=== PATIENT | female | born 1975 | race Caucasian/White ===

== ENCOUNTER → 2016-10-02 | Outpatient (CLI) | payer OTHER ==
--- NOTE | 2016-10-07 09:14 | MM ---
Reason for exam: screening (asymptomatic). Baseline mammogram. History: Patient is nulliparous. Saline implants in both breasts, 1996. Took hormonal contraceptives for 1 year. Physical Findings: Nurse did not find any significant physical abnormalities on exam. MG Screening Mammo Implant/CAD Bilateral CC, MLO, and ID view(s) were taken. There are scattered fibroglandular densities. There is no discrete abnormality. Bilateral implants. ASSESSMENT: Negative, BI-RAD 1 RECOMMENDATION: Routine screening mammogram of both breasts in 1 year.
== END | disposition home or self-care (01) ==
LOC: RADMAMWWP 13:52
PROVIDERS: ATTEND Family Medicine
DX: Z12.31 Encounter for screening mammogram for malignant neoplasm of breast (principal)

== ENCOUNTER 2017-02-10 16:45 | Emergency (ER) | payer OTHER ==
[2017-02-10 16:51] VITALS: TEMP 97.3
[2017-02-10] MEDS ORDERED: SODIUM CHLORIDE 0.9% 1,000 ML IV STA (16:56)
[2017-02-10 17:04] LABS: Glucose,Whole Blood 137 mg/dL (75-99)
--- NOTE | 2017-02-10 17:05 | ED ---
Syncope HPI - General Chief Complaint: Syncope Stated Complaint: syncope Time Seen by Provider: 02/10/17 16:47 Source: EMS, RN notes reviewed Mode of arrival: EMS Limitations: no limitations - History of Present Illness Initial Comments: 41-year-old female presents to the emergency department with a chief complaint syncopal episode. Patient donated plasma today. Patient states that she was informed that they took too much plasma did not get her blood back. Patient states that time she felt fine when she had to leave she felt lightheaded and she passed out. Patient states she believes she hit her head she has pain to the back of the head. Patient states that this time she has a mild headache. Patient denies any lightheadedness or dizziness when she sits still. Patient states that she was concerned due to her continued symptoms so she presents to be evaluated. Patient denies any recent fever, chills, shortness of breath, chest pain, back pain, abdominal pain, nausea vomiting, numbness or tingling, dysuria or hematuria, constipation or diarrhea, visual changes, or any other current symptoms. - Related Data Home Medications Medication Instructions Recorded Confirmed Acetaminophen [Tylenol] 1,000 mg PO DAILY PRN 02/10/17 02/10/17 Fluticasone Nasal [place] [Flonase 2 spr EA NOSTRIL DAILY PRN 02/10/17 02/10/17 Nasal [place]] Allergies Allergy/AdvReac Type Severity Reaction Status Date / Time latex Allergy Rash/Hives Verified 02/10/17 17:15 Review of Systems ROS Statement: Those systems with pertinent positive or pertinent negative responses have been documented in the HPI. ROS Other: All systems not noted in ROS Statement are negative. Past Medical History Past Medical History: No Reported History History of Any Multi-Drug Resistant Organisms: None Reported Past Surgical History: Uterine Ablation Additional Past Surgical History / Comment(s): nephrectomy l, ectopic Past Psychological History: No Psychological Hx Reported Smoking Status: Never smoker Past Alcohol Use History: None Reported, Rare Past Drug Use History: None Reported General Exam - General Exam Comments Initial Comments: General: The patient is awake and alert, in no distress, and does not appear acutely ill. Eye: Pupils are equal, round and reactive to light, extra-ocular movements are intact; there is normal conjunctiva bilaterally. No signs of icterus. Ears, nose, mouth and throat: There are moist mucous membranes and no oral lesions. Neck: The neck is supple, there is no tenderness. Cardiovascular: There is a regular rate and rhythm. No murmur, rub or gallop is appreciated. Respiratory: Lungs are clear to auscultation, respirations are non-labored, breath sounds are equal. No wheezes, stridor, rales, or rhonchi. Gastrointestinal: Soft, non-distended, non-tender abdomen without masses or organomegaly noted. There is no rebound or guarding present. No CVA tenderness. Bowel sounds are unremarkable. Back: There is no tenderness to palpation in the midline. There is no obvious deformity. No rashes noted. Musculoskeletal: Normal ROM, no tenderness, There is no pedal edema. There is no calf tenderness or swelling. Sensation intact. Pulses equal bilaterally 2+. Neurological: CN II-XII intact, There are no obvious motor or sensory deficits. Coordination appears grossly intact. Speech is normal. Skin: Skin is warm and dry and no rashes or lesions are noted. Psychiatric: Cooperative, appropriate mood & affect, normal judgment. Limitations: no limitations Course Vital Signs 02/10/17 16:47 Temperature 97.3 F L Pulse Rate 96 Respiratory 18 Rate Blood Pressure 129/93 O2 Sat by Pulse 100 Oximetry EKG Findings - EKG Comments: EKG Findings:: normal sinus rhythm 90 bpm, rightward axis, no atopy, no S-T depressions or elevations, Medical Decision Making - Medical Decision Making 41-year-old female presents for syncopal episode. This time is reviewed and does appear to be stable. This time patient does show some dehydration. We did hydrate the patient. We did discuss symptoms are most likely due to the duration of positive. We discussed return parameters and follow-up. Patient states she understood all questions have. She'll be discharged. - Lab Data Result diagrams: 02/10/17 17:07 02/10/17 17:07 Lab Results 02/10/17 02/10/17 02/10/17 Range/Units 17:02 17:07 17:07 WBC 8.5 (3.8-10.6) k/uL RBC 5.43 H (3.80-5.40) m/uL Hgb 17.5 H (11.4-16.0) gm/dL Hct 52.5 H (34.0-46.0) % MCV 96.7 (80.0-100.0) fL MCH 32.2 (25.0-35.0) pg MCHC 33.3 (31.0-37.0) g/dL RDW 12.4 (11.5-15.5) % Plt Count 201 (150-450) k/uL Neutrophils % 69 % Lymphocytes % 22 % Monocytes % 5 % Eosinophils % 1 % Basophils % 1 % Neutrophils # 5.9 (1.3-7.7) k/uL Lymphocytes # 1.9 (1.0-4.8) k/uL Monocytes # 0.4 (0-1.0) k/uL Eosinophils # 0.1 (0-0.7) k/uL Basophils # 0.1 (0-0.2) k/uL Sodium (137-145) mmol/L Potassium (3.5-5.1) mmol/L Chloride (98-107) mmol/L Carbon Dioxide (22-30) mmol/L Anion Gap mmol/L BUN (7-17) mg/dL Creatinine (0.52-1.04) mg/dL Est GFR (MDRD) Af Amer (>60 ml/min/1.73 sqM) Est GFR (MDRD) Non-Af (>60 ml/min/1.73 sqM) Glucose (74-99) mg/dL POC Glucose (mg/dL) 137 H (75-99) mg/dL POC Glu Flyer Builder ID Anger, Suzanne Calcium (8.4-10.2) mg/dL Total Bilirubin (0.2-1.3) mg/dL AST (14-36) U/L ALT (9-52) U/L Alkaline Phosphatase (38-126) U/L Total Protein (6.3-8.2) g/dL Albumin (3.5-5.0) g/dL Blood Type O Positive Blood Type Recheck O Pos Antibody Screen NEGATIVE Spec Expiration Date 02/13/2017230602/10/17 Range/Units 17:07 WBC (3.8-10.6) k/uL RBC (3.80-5.40) m/uL Hgb (11.4-16.0) gm/dL Hct (34.0-46.0) % MCV (80.0-100.0) fL MCH (25.0-35.0) pg MCHC (31.0-37.0) g/dL RDW (11.5-15.5) % Plt Count (150-450) k/uL Neutrophils % % Lymphocytes % % Monocytes % % Eosinophils % % Basophils % % Neutrophils # (1.3-7.7) k/uL Lymphocytes # (1.0-4.8) k/uL Monocytes # (0-1.0) k/uL Eosinophils # (0-0.7) k/uL Basophils # (0-0.2) k/uL Sodium 140 (137-145) mmol/L Potassium 4.0 (3.5-5.1) mmol/L Chloride 108 H (98-107) mmol/L Carbon Dioxide 18 L (22-30) mmol/L Anion Gap 14 mmol/L BUN 10 (7-17) mg/dL Creatinine 0.87 (0.52-1.04) mg/dL Est GFR (MDRD) Af Amer >60 (>60 ml/min/1.73 sqM) Est GFR (MDRD) Non-Af >60 (>60 ml/min/1.73 sqM) Glucose 134 H (74-99) mg/dL POC Glucose (mg/dL) (75-99) mg/dL POC Glu Flyer Builder ID Calcium 9.3 (8.4-10.2) mg/dL Total Bilirubin 0.8 (0.2-1.3) mg/dL AST 22 (14-36) U/L ALT 22 (9-52) U/L Alkaline Phosphatase 53 (38-126) U/L Total Protein 7.4 (6.3-8.2) g/dL Albumin 4.4 (3.5-5.0) g/dL Blood Type Blood Type Recheck Antibody Screen Spec Expiration Date - Radiology Data Radiology results: report reviewed, image reviewed Disposition Clinical Impression: Vasovagal syncope, Dehydration, Syncope Disposition: HOME SELF-CARE Condition: Stable Instructions: Syncope (ED) Additional Instructions: Please use medication as discussed. Please follow up with family doctor if symptoms have not improved over the next two days. Please return to the emergency room if your symptoms increase or worsen or for any other concerns. Referrals: Terra Brown III, MD [Primary Care Provider] - 1-2 days Time of Disposition: 18:25
[2017-02-10 17:32] LABS: Basophils # (A) 0.1 k/uL (0-0.2); Basophils % (A) 1 %; CH 32.7; CHCM 33.9; Eosinophils # (A) 0.1 k/uL (0-0.7); Eosinophils % (A) 1 %; HCT 52.5 % (34.0-46.0); HDW 2.28; HGB 17.5 gm/dL (11.4-16.0); Luc # (Auto) 0.16; Luc % (Auto) 2; Lymphocytes # (A) 1.9 k/uL (1.0-4.8); Lymphocytes % (A) 22 %; MCH 32.2 pg (25.0-35.0); MCHC 33.3 g/dL (31.0-37.0); MCV 96.7 fL (80.0-100.0); Mean Platelet Volume 7.1; Monocytes # (A) 0.4 k/uL (0-1.0); Monocytes % (A) 5 %; Neutrophils # (A) 5.9 k/uL (1.3-7.7); Neutrophils % (A) 69 %; RBC 5.43 m/uL (3.80-5.40); RDW 12.4 % (11.5-15.5); WBC 8.5 k/uL (3.8-10.6); WBC (Perox) 8.52
[2017-02-10 17:43] LABS: ALT 22 U/L (9-52); AST 22 U/L (14-36); Alkaline Phosphatase 53 U/L (38-126); Anion Gap 14 mmol/L; Blood Urea Nitrogen 10 mg/dL (7-17); Calcium 9.3 mg/dL (8.4-10.2); Carbon Dioxide 18 mmol/L (22-30); Chloride 108 mmol/L (98-107); Glucose 134 mg/dL (74-99); Non-African American GFR(MDRD) >60 (>60 ml/min/1.73 sqM); Sodium 140 mmol/L (137-145); Total Bilirubin 0.8 mg/dL (0.2-1.3); Total Protein 7.4 g/dL (6.3-8.2)
--- NOTE | 2017-02-10 18:06 | CT ---
EXAMINATION TYPE: CT brain terriine wo con DATE OF EXAM: 02/10/2017 5:44 PM COMPARISON: NONE Neck pain HISTORY: Syncope neck pain CT DLP: 1764 mGycm Automated exposure control for dose reduction was used. TECHNIQUE: CT scan of the head and cervical spine are performed without contrast. FINDINGS: The ventricles and sulci appear normal. There is no mass effect nor midline shift. There is no sign of intracranial hemorrhage. The calvarium is intact. The cervical vertebra have normal spacing and alignment. Posterior elements are intact. Skull base ap pears intact. There is no evidence of a fracture. Facet joints appear normal. IMPRESSION: Normal CT scan of the cervical spine. Normal CT scan of the brain.
[2017-02-10 18:34] VITALS: RESP 16
[2017-02-10 18:54] VITALS: BP 138/86; PULSE 70
== END 2017-02-10 18:53 | disposition home or self-care (01) ==
LOC: EC 16:45
DX: E86.0 Dehydration (principal); R55 Syncope and collapse; R51 Headache; Z91.040 Latex allergy status
CPT/HCPCS: 36415; 70450; 72125; 80053; 85025; 86850; 86900; 86901; 93005; 96360; 96361; 99285

== ENCOUNTER → 2018-01-18 | Outpatient (CLI) | payer OTHER ==
--- NOTE | 2018-01-18 10:18 | US ---
EXAMINATION TYPE: US abdomen comp/pelvis limited DATE OF EXAM: 01/18/2018 COMPARISON: Abdominal x-ray December 30, 2014. MRI lumbar spine October 24, 2012. CLINICAL HISTORY: N28.89 DISORDER OF KIDNEY AND URETER,R10.9 ABD PAIN. Intermittent abdomen and lower back pain x 3 weeks, bloating, UTI, history of left nephrectomy EXAM MEASUREMENTS: Liver Length: 12.6 cm Gallbladder Wall: 0.2 cm CBD: 0.4 cm Spleen: 11.7 cm Right Kidney: 12.2 x 5.4 x 5.7 cm Left Kidney: surgically absent Post Void Residual: 34.8 mL Pancreas: visualized portions wnl, tail obscured by overlying midline bowel gas Liver: 1.4 x 1.3 x 1.6cm hypoechoic lesion right lobe , slightly heterogeneous hyperechoic liver Gallbladder: wnl CBD: wnl Spleen: wnl Right Kidney: wnl Left Kidney: surgically absent Upper IVC: wnl Abd Aorta: wnl Bladder: wnl Bilateral Jets Seen right jet seen. Normal Post Void Residual (normal less than 50ml) yes Normal-appearing left kidney is not identified. There is lobulated anechoic area measuring 5.4 x 6.8 x 4.5 cm at level of left renal fossa could reflect postsurgical seroma, other etiologies are not exc luded. IMPRESSION: Lobulated 6.8 cm cystic collection at level of left renal fossa. 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 Nonspecific 1.6 cm hypoechoic lesion in liver. Consider furt her investigation with contrast-enhanced CT or MRI to further evaluate both levels.
== END | disposition home or self-care (01) ==
LOC: RADUSWWP 08:22
PROVIDERS: ATTEND Family Medicine
DX: K76.9 Liver disease, unspecified (principal); N28.89 Other specified disorders of kidney and ureter
CPT/HCPCS: 76700; 76857

== ENCOUNTER → 2018-01-19 | Outpatient (CLI) | payer OTHER ==
--- NOTE | 2018-01-19 13:37 | US ---
EXAMINATION TYPE: US venous doppler duplex LE LT DATE OF EXAM: 01/19/2018 1:27 PM COMPARISON: NONE CLINICAL HISTORY: 42-year-old female M79.669 CALF PAIN. Pain left lower leg, LT ACL repair 12/09/17 SIDE PERFORMED: left TECHNIQUE: The lower extremity deep venous system is examined utilizing real time linear array sonog juliet with graded compression, doppler sonography and color-flow sonography. FINDINGS: VESSELS IMAGED: External Iliac Vein (EIV) Common Femoral Vein Deep Femoral Vein Greater Saphenous Vein * Femoral Vein Popliteal Vein Small Saphenous Vein * Proximal Calf Veins (* superficial vessels) Left Leg: No evidence of DVT as visualized IMPRESSION: No evidence for DVT within the left lower extremity imaged from the groin to the upper calf.
== END | disposition home or self-care (01) ==
LOC: RADUSWWP 12:59
PROVIDERS: ATTEND Orthopaedic Surgery Sports Medicine
DX: M79.662 Pain in left lower leg (principal)

== ENCOUNTER → 2018-02-10 | Outpatient (CLI) | payer OTHER ==
--- NOTE | 2018-02-11 15:20 | MR ---
EXAMINATION TYPE: MR abdomen wo/w con DATE OF EXAM: 02/10/2018 COMPARISON: Abdominal ultrasound dated 01/18/2018 HISTORY: Abd/Back pain, patient had 1 kidney removed as an CONTRAST/TECHNIQUE: Standard multiplanar, multisequence MRI departmental protocol utilizing 7.5 mL intravenous Gadavist g adolinium contrast. FINDINGS: There is only minimal signal dropout within the generalized hepatic parenchyma on out of ph ase imaging not meeting criteria for hepatic steatosis., However corresponding to the sonographic abn ormality within the right hepatic lobe there is a focal 1.2 cm lesion medially that demonstrates foca l signal dropout on out of phase imaging representing focal fatty infiltration. This does not demonst rate any suspicious enhancement. The gallbladder is unremarkable and there is a normal size of the common bile duct. The pancreas is a lso of unremarkable enhancement and morphology without ductal dilatation. The spleen and adrenal glan ds enhance symmetrically without nodule. There is a severely atrophic left kidney with marked hydroureteronephrosis and narrowing at the urete ropelvic junction possibly related to chronic left ureteropelvic obstruction. This can be congenital, from stricture, or extraconal obstruction. No focal mass is identified creating the obstruction. No identifiable cause of external compression is seen within the abdomen. The right kidney is of homogen eous enhancement without hydronephrosis. No right renal lesions are seen. The bowel is nondilated. Bone marrow signal is unremarkable. Bilateral breast prostheses are incident ally identified. Minimal bibasilar subsegmental dependent atelectasis is noted. IMPRESSION: 1. Although the patient states she had a kidney removed as an infant imaging findings are as follows there appears to be a severely atrophic left kidney with severe left hydroureteronephrosis. This coul d be a result of congenital left ureteropelvic obstruction, intraluminal obstruction by stone or mass , or external compression. No MR evidence of internal or external compression are seen. 2. The previously seen sonographic hepatic abnormalities relates to an area of focal fatty infiltrati on. No suspicious hepatic lesion.
== END | disposition home or self-care (01) ==
LOC: RADMRIMAIN 11:15
PROVIDERS: ATTEND Family Medicine
DX: N28.89 Other specified disorders of kidney and ureter (principal); Z90.5 Acquired absence of kidney
CPT/HCPCS: 74183; A9581

== ENCOUNTER 2019-10-08 07:23 | Emergency (ER) | payer OTHER ==
[2019-10-08 07:30] VITALS: TEMP 97.8
[2019-10-08] MEDS ORDERED: ACETAMINOPHEN TAB 325 MG TAB PO STA (07:42)
--- NOTE | 2019-10-08 07:42 | ED ---
Fall HPI - General Chief Complaint: Fall Stated Complaint: [facility] - lt knee/hip injury Time Seen by Provider: 10/08/19 07:30 Source: patient Mode of arrival: ambulatory - History of Present Illness Initial Comments: Patient is a 44-year-old female presenting to emergency Department complaining of left knee and hip pain after slipping and falling today. Patient states she was walking into work and was in the parking lot when she stepped on a patch of ice and fell mostly onto her left hip. Patient states she had previous left meniscal surgery approximately 2-3 years ago. Patient states she is having some pain in the anterior portion of her left knee as well as her left hip area. Patient is able to ambulate with a slight limp. Patient denies hitting her head area other injuries from this fall. She has no other complaints at this time. Upon arrival to ER, her vital signs are stable. - Related Data Home Medications Medication Instructions Recorded Confirmed Acetaminophen [Tylenol] 1,000 mg PO DAILY PRN 02/10/17 12/30/17 Fluticasone Nasal [place] [Flonase 2 spr EA NOSTRIL DAILY PRN 02/10/17 12/30/17 Nasal [place]] Aspirin EC [Ecotrin] 325 mg PO DAILY 12/30/17 12/30/17 HYDROcodone/APAP 5-325MG [[place] 1 tab PO Q6HR PRN 12/30/17 12/30/17 5-325] Ibuprofen [Motrin] 800 mg PO TID PRN 12/30/17 12/30/17 Loratadine [Claritin] 10 mg PO DAILY 12/30/17 12/30/17 Magnesium Hydroxide [Milk of 400 mg PO DAILY PRN 12/30/17 12/30/17 Magnesia] Previous Rx's Medication Instructions Recorded Nitrofurantoin Monohyd/M-Cryst 100 mg PO Q12HR #14 cap 12/30/17 [Macrobid] Allergies Allergy/AdvReac Type Severity Reaction Status Date / Time Iodinated Contrast Media Allergy Unknown Verified 10/08/19 07:30 [Iodinated Contrast- Oral and IV Dye] latex Allergy Rash/Hives Verified 10/08/19 07:30 Review of Systems ROS Statement: Those systems with pertinent positive or pertinent negative responses have been documented in the HPI. ROS Other: All systems not noted in ROS Statement are negative. Past Medical History Past Medical History: Deep Vein Thrombosis (DVT) History of Any Multi-Drug Resistant Organisms: None Reported Past Surgical History: Orthopedic Surgery, Uterine Ablation Additional Past Surgical History / Comment(s): nephrectomy l, ectopic Past Psychological History: No Psychological Hx Reported Smoking Status: Never smoker Past Alcohol Use History: Rare Past Drug Use History: None Reported General Exam - General Exam Comments Initial Comments: GENERAL: Well-appearing, well-nourished and in no acute distress. HEAD: Atraumatic, normocephalic. EYES: Pupils equal round and reactive to light, extraocular movements intact, sclera anicteric, conjunctiva are normal. ENT: TMs normal, nares patent, oropharynx clear without exudates. Moist mucous membranes. NECK: Normal range of motion, supple without lymphadenopathy or JVD. LUNGS: Breath sounds clear to auscultation bilaterally and equal. No wheezes rales or rhonchi. HEART: Regular rate and rhythm without murmurs, rubs or gallops. ABDOMEN: Soft, nontender, normoactive bowel sounds. No guarding, no rebound. No masses appreciated. : Deferred EXTREMITIES: Mild pain to palpation of the left anterior knee as well as the left lateral hip. Slightly decreased range of motion of the left knee. Patient has full hip range of motion with some mild pain in the posterior aspect. No swelling or deformity seen. Neurovascular intact. NEUROLOGICAL: Normal speech, normal gait. PSYCH: Normal mood, normal affect. SKIN: Warm, Dry, normal turgor, no rashes or lesions noted. Limitations: no limitations Course Vital Signs 10/08/19 10/08/19 07:25 08:36 Temperature 97.8 F Pulse Rate 93 85 Respiratory 16 18 Rate Blood Pressure 155/100 150/92 O2 Sat by Pulse 99 98 Oximetry Medical Decision Making - Medical Decision Making Patient is a 44-year-old female presenting with left knee and hip pain after slipping and falling in the parking lot at her work today. No LOC, no head injury. X-ray of the left hip and left knee showed no acute abnormalities, no joint swelling. I discussed these findings with the patient. This is most likely a contusion. Patient will use ice and Tylenol or Motrin for pain relief. She is stable for discharge at this time and she is in agreement with this plan of care. Patient will follow up with her PCP or orthopedic doctor if symptoms persist after one to 2 weeks. Disposition Clinical Impression: Fall, Left knee pain, Contusion of left hip Disposition: HOME SELF-CARE Condition: Stable Instructions (If sedation given, give patient instructions): Hip Contusion (ED) Additional Instructions: Please return to the Emergency Department if symptoms worsen or any other concerns. Use ice on the knee and hip for the first 1-2 days. Then may switch to heat. Use Tylenol or Motrin for pain relief. Follow-up with PCP or orthopedic doctor if symptoms persist after one to 2 weeks. Is patient prescribed a controlled substance at d/c from ED?: No Referrals: Terra Brown III, MD [Primary Care Provider] - 1-2 days
--- NOTE | 2019-10-08 08:09 | XR ---
EXAMINATION TYPE: XR knee complete LT , 3 VIEWS DATE OF EXAM ORDERED: 10/08/2019 HISTORY: pain, fall. COMPARISON: None. FINDINGS: No fracture, dislocation or knee joint effusion is seen. IMPRESSION: NO ACUTE OSSEOUS LESION.
--- NOTE | 2019-10-08 08:11 | XR ---
EXAMINATION TYPE: XR Hip Complete LT , 2 VIEWS DATE OF EXAM ORDERED: 10/08/2019 HISTORY: pain, fall. COMPARISON: None. FINDINGS: There are mild degenerative changes within the hip joint. No acute fracture or dislocation is seen. Note is made of Essure wires projecting over the pelvis. IMPRESSION: NO ACUTE OSSEOUS LESION.
[2019-10-08 08:38] VITALS: BP 150/92; PULSE 85; RESP 18
== END 2019-10-08 08:38 | disposition home or self-care (01) ==
LOC: EC 07:23
DX: S70.02XA Contusion of left hip, initial encounter (principal); M25.562 Pain in left knee; Z79.82 Long term (current) use of aspirin; Z79.899 Other long term (current) drug therapy; Z91.040 Latex allergy status; Z91.048 Other nonmedicinal substance allergy status; Z86.718 Personal history of other venous thrombosis and embolism; Z90.5 Acquired absence of kidney; W01.0XXA Fall on same level from slipping, tripping and stumbling without subsequent striking against object, initial encounter; Y93.01 Activity, walking, marching and hiking; Y92.481 Parking lot as the place of occurrence of the external cause; Y99.0 Civilian activity done for income or pay
CPT/HCPCS: 73502; 99283

== ENCOUNTER → 2019-10-11 | Outpatient (CLI) | payer OTHER ==
--- NOTE | 2019-10-11 13:27 | XR ---
EXAMINATION TYPE: XR lumbar spine 2 or 3V DATE OF EXAM: 10/11/2019 CLINICAL HISTORY: Low back pain after fall injury a few days ago. TECHNIQUE: Frontal and lateral images of the lumbar spine are obtained. COMPARISON: Lumbar spine x-ray August 30, 2012 FINDINGS: There are 5 lumbar type vertebral bodies redemonstrated. The lumbar spine redemonstrated straightened alignment without evidence of acute fracture or dislocation. Vertebral body heights nicole in within normal limits. Mild disc space narrowing with mild to moderate anterior spurring L3-L4 leve l is more prominent from prior. Additional mild multilevel anterior spurring again seen. On lateral v iew there are partial visualization of Essure devices in the fallopian tubes. IMPRESSION: No acute fracture or dislocation is seen in the lumbar spine.
--- NOTE | 2019-10-11 13:32 | XR ---
Left foot HISTORY: Trauma several days prior, pain 3 views the left foot Bone mineralization, joint spaces and alignment are maintained. There is a plantar calcaneal spur pre sent. IMPRESSION: No fracture or dislocation.
== END | disposition home or self-care (01) ==
LOC: RADXRMAIN 13:02
PROVIDERS: ATTEND Emergency Medicine
DX: S33.5XXA Sprain of ligaments of lumbar spine, initial encounter (principal); M79.672 Pain in left foot
CPT/HCPCS: 72100

== ENCOUNTER → 2019-10-19 | Outpatient (CLI) | payer OTHER ==
--- NOTE | 2019-10-19 10:37 | XR ---
EXAMINATION TYPE: XR knee complete LT DATE OF EXAM: 10/19/2019 CLINICAL HISTORY: Slip and fall injury with pain. TECHNIQUE: Three views of the left knee are obtained. COMPARISON: Left knee x-ray October 08, 2019. FINDINGS: There is no new acute fracture/dislocation evident in left knee. The tri-compartment join t spaces appear within normal limits. Some vague sclerosis and periosteal reaction lateral aspect pro ximal tibial diaphysis felt to reflect product of healing or healed nondisplaced fracture seen on thi s and prior study. Current study shows calcification medial aspect distal femoral metaphysis presumed at the origin of the MCL. Findings consistent with a Tiffany-Stieda lesion. Correlate clinically . The overlying soft tissue appears unremarkable. IMPRESSION: As above.
== END | disposition home or self-care (01) ==
LOC: RADXRMAIN 10:05
PROVIDERS: ATTEND Emergency Medicine
DX: M25.862 Other specified joint disorders, left knee (principal)

== ENCOUNTER → 2019-10-23 | Outpatient (CLI) | payer OTHER ==
--- NOTE | 2019-10-23 22:51 | MR ---
EXAMINATION TYPE: MR lumbar spine wo con DATE OF EXAM: 10/23/2019 COMPARISON: X-ray 10/11/2019 HISTORY: Low back pain into left leg TECHNIQUE: T1 and T2 axial and sagittal images of the lumbar spine are submitted. FINDINGS: There is no abnormal signal seen within the visualized spinal cord or paraspinal soft tissu es. Left kidney is markedly atrophic. Small simple cyst noted. Suggestion of gallstones. Mild anterio r hypertrophic spurring at levels L2-L5. At L1-2 there is no evidence of degenerative disc disease, disc herniation, canal stenosis, or forami nal encroachment. At L2-3 there is no evidence of degenerative disc disease, disc herniation, canal stenosis, or forami nal encroachment. At L3-4 there is disc desiccation. Broad-based disc bulging with no focal herniation. Mild bilateral foraminal encroachment. No definite nerve root contact. No disc herniation or canal stenosis. Mild hy pertrophic change of the facets. At L4-5 there is No disc herniation or canal stenosis. Mild hypertrophic change of the facets. Neural foramina patent. At L5-S1 there is No disc herniation or canal stenosis. Mild hypertrophic change of the facets. Canno t exclude a pars defect at L5 bilaterally. IMPRESSION: 1. Stable mild disc desiccation L3-L4 with mild disc bulging. No canal stenosis or focal herniation. Stable mild bilateral foraminal encroachment. 2. Findings suggesting markedly atrophic left kidney with suspected simple cyst. Central hydronephros is also suspected which was noted on previous MRI of the abdomen 02/10/2019 and appears similar. 3. Could not exclude pars defects at L5 bilaterally.
== END | disposition home or self-care (01) ==
LOC: RADMRIMAIN 21:20
PROVIDERS: ATTEND Emergency Medicine
DX: S33.5XXD Sprain of ligaments of lumbar spine, subsequent encounter (principal); S30.0XXD Contusion of lower back and pelvis, subsequent encounter; S80.02XD Contusion of left knee, subsequent encounter; M79.672 Pain in left foot
CPT/HCPCS: 72148

== ENCOUNTER → 2019-10-30 | Outpatient (CLI) | payer OTHER ==
--- NOTE | 2019-10-31 10:03 | MR ---
EXAMINATION TYPE: MR knee LT wo con DATE OF EXAM: 10/30/2019 COMPARISON: None HISTORY: Left knee pain/injured 2 yrs ago, recently injured again 2 wks ago TECHNIQUE: Multiplanar, multisequence images of the knee is performed without IV contrast. FINDINGS: MEDIAL MENISCUS: Anterior and posterior horns are intact without tear. LATERAL MENISCUS: Anterior and posterior horns are intact without tear. CRUCIATE LIGAMENTS: The anterior and posterior cruciate ligaments are intact and unremarkable. COLLATERAL LIGAMENTS: The medial collateral ligament and lateral collateral ligament complex are inta ct and unremarkable. EXTENSOR MECHANISM: Visualized quadriceps and patellar tendons are intact. EFFUSION: No significant suprapatellar joint effusion. POPLITEAL CYST: 1.5 cm Norton's cyst. TRICOMPARTMENT SPACES: Intact CARTILAGE: Intact BONE MARROW SIGNAL: No focal abnormal marrow signal is appreciated. OTHER: No additional significant abnormality is appreciated. IMPRESSION: 1. No internal arrangement visualized. Small Norton's cyst noted.
== END | disposition home or self-care (01) ==
LOC: RADMRIMAIN 21:24
PROVIDERS: ATTEND Emergency Medicine
DX: M71.22 Synovial cyst of popliteal space [Baker], left knee (principal); S80.02XD Contusion of left knee, subsequent encounter

== ENCOUNTER → 2020-07-22 | Outpatient (CLI) | payer OTHER ==
--- NOTE | 2020-07-24 10:52 | MM ---
Reason for exam: screening (asymptomatic). Last mammogram was performed 3 years and 10 months ago. History: Patient is nulliparous. Saline implants in both breasts, 1996. Took hormonal contraceptives for 1 year. Physical Findings: A clinical breast exam by your physician is recommended on an annual basis and results should be correlated with mammographic findings. MG Screening Mammo Implant/CAD Bilateral CC, MLO, and ID view(s) were taken. Prior study comparison: October 02, 2016, bilateral MG screening mammo implant/CAD. No significant changes when compared with prior studies. ASSESSMENT: Negative, BI-RAD 1 RECOMMENDATION: Routine screening mammogram of both breasts in 1 year.
== END | disposition home or self-care (01) ==
LOC: RADMAMWWP 07:08
PROVIDERS: ATTEND Family Medicine
DX: Z12.31 Encounter for screening mammogram for malignant neoplasm of breast (principal)
CPT/HCPCS: 77067

== ENCOUNTER → 2020-10-22 | Outpatient (CLI) | payer OTHER ==
[2020-10-23 00:24] LABS: Mumps Virus IgG Ab Interp POSITIVE (NEGATIVE)
== END | disposition home or self-care (01) ==
LOC: LABWHC1 16:02
PROVIDERS: ATTEND Physician Assistant Medical
DX: Z01.84 Encounter for antibody response examination (principal)
CPT/HCPCS: 36415; 86735; 86762; 86765

== ENCOUNTER → 2020-12-23 | Outpatient (CLI) | payer OTHER ==
--- NOTE | 2020-12-23 13:37 | XR ---
EXAMINATION TYPE: XR chest 2V DATE OF EXAM: 12/23/2020 COMPARISON: 12/30/2017 TECHNIQUE: PA and lateral views submitted. HISTORY: Chest pain FINDINGS: The lungs are clear and there is no pneumothorax, pleural effusion, or focal pneumonia. Heart size normal. No overt failure. Hypertrophic change of the spine. IMPRESSION: 1. No acute process.
--- NOTE | 2020-12-23 13:48 | XR ---
EXAMINATION TYPE: XR KUB DATE OF EXAM: 12/23/2020 COMPARISON: NONE HISTORY: Right flank pain TECHNIQUE: One view abdominal series FINDINGS: The osseous structures are intact. The bowel gas pattern is nonspecific. Punctate calcification the left upper quadrant. Stable from prior exam. Hypertrophic and degenerative change of the spine. Metal lic coils are seen in the pelvis suggestive of previous surgery calcifications in the pelvis likely v ascular. Hypertrophic change of the acetabulum could be associated with femoral acetabular impingemen t. IMPRESSION: 1. Nonspecific abdomen. 2. Too small to characterize punctate 2 mm left upper quadrant calcification. 3. Postsurgical change in the pelvis. 3. Numerous nonspecific calcifications in the pelvis the majority of which are likely vascular. If th ere is concern for bladder or distal UVJ calculus consider noncontrast CT scan.
[2020-12-23 19:43] LABS: Basophils # (A) 0.03 X 10*3/uL (0.00-0.10); Basophils % (A) 0.6 %; Eosinophils # (A) 0.13 X 10*3/uL (0.04-0.35); Eosinophils % (A) 2.5 %; HCT 41.8 % (37.2-46.3); HGB 13.7 g/dL (12.0-15.0); Lymphocytes # (A) 1.35 X 10*3/uL (0.90-5.00); Lymphocytes % (A) 25.6 %; MCH 31.6 pg (27.0-32.0); MCHC 32.8 g/dL (32.0-37.0); MCV 96.5 fL (80.0-97.0); Mean Platelet Volume 10.3 fL (9.5-12.2); Monocytes # (A) 0.48 X 10*3/uL (0.20-1.00); Monocytes % (A) 9.1 %; Neutrophils # (A) 3.27 X 10*3/uL (1.80-7.70); Platelet Count 266 X 10*3/uL (140-440); RBC 4.33 X 10*6/uL (4.10-5.20); RDW 11.8 % (11.5-14.5); WBC 5.27 X 10*3/uL (4.50-10.00)
[2020-12-23 23:35] LABS: African American GFR (CKD) 79.3 (60.0-200.0); Albumin 4.8 g/dL (3.80-4.90); Albumin/Globulin Ratio 2.09 (1.60-3.17); Anion Gap 8.6 mmol/L (4.00-12.00); Carbon Dioxide 26.4 mmol/L (21.6-31.8); Globulin 2.3 g/dL (1.6-3.3); Non-African American GFR(CKD) 68.5 (60.0-200.0); Potassium 4.3 mmol/L (3.5-5.5); Total Bilirubin 0.4 mg/dL (0.2-1.2); Total Protein 7.1 g/dL (6.2-8.2)
== END | disposition home or self-care (01) ==
LOC: LABWHC1 12:23
PROVIDERS: ATTEND Family Medicine
DX: U07.1 COVID-19 (principal); N28.89 Other specified disorders of kidney and ureter; R60.0 Localized edema; Q60.0 Renal agenesis, unilateral; R10.32 Left lower quadrant pain
CPT/HCPCS: 36415; 71046; 74018; 80053; 83880; 85025

== ENCOUNTER → 2021-01-09 | Outpatient (CLI) | payer OTHER ==
--- NOTE | 2021-01-09 09:10 | CT ---
EXAMINATION TYPE: CT abdomen wo con DATE OF EXAM: 01/09/2021 COMPARISON: None HISTORY: left flank pain CT DLP: 398.7 mGycm Examination of the solid and hollow viscera is limited given the lack of contrast. Unenhanced CT of t he abdomen was performed. The lack of contrast limits evaluation. FINDINGS: LUNG BASES: No evidence for nodule. No evidence for infiltrate. LIVER/GB: The gallbladder is unremarkable. No space-occupying hepatic lesion. PANCREAS: No pancreatic mass identified. No inflammatory process seen. SPLEEN: No evidence for splenomegaly. No intrasplenic lesions seen. ADRENALS: No adrenal nodules identified. No evidence for thickening. KIDNEYS: Atrophic change of the left kidney extensive renal parenchymal thinning. Parapelvic cysts ve rsus chronic hydronephrosis. Focal parenchymal calcifications noted measuring up to 8 mm. No evidence for hydroureter. The right kidney is of normal caliber and appearance. No right-sided hydronephrosis or nephrolithiasis. BOWEL: Visualized bowel loops are grossly unremarkable. Lymph nodes: No evidence for adenopathy greater than 1 cm. Abdominal aorta: Atheromatous changes seen. No evidence for aneurysm. Other: No significant abnormality. IMPRESSION: Atrophic change of the left kidney extensive renal parenchymal thinning. Parapelvic cysts versus tree pruner laurie hydronephrosis. Focal parenchymal calcifications noted measuring up to 8 mm. No evidence for hydr oureter.
== END | disposition home or self-care (01) ==
LOC: RADCTMAIN 08:23
PROVIDERS: ATTEND Family Medicine
DX: N26.1 Atrophy of kidney (terminal) (principal); Q60.0 Renal agenesis, unilateral
CPT/HCPCS: 74150